=== PATIENT | female | born 1955 | race Caucasian/White ===

== ENCOUNTER 2016-06-18 12:05 | Emergency (ER) | payer OTHER, BC | END 2016-06-18 16:59 | disposition home or self-care (01) | LOC: ER 12:05 | DX: S00.83XA Contusion of other part of head, initial encounter (principal); S60.031A Contusion of right middle finger without damage to nail, initial encounter; S80.01XA Contusion of right knee, initial encounter; S70.12XA Contusion of left thigh, initial encounter; S83.511A Sprain of anterior cruciate ligament of right knee, initial encounter; W01.10XA Fall on same level from slipping, tripping and stumbling with subsequent striking against unspecified object, initial encounter; Y93.89 Activity, other specified; Y92.219 Unspecified school as the place of occurrence of the external cause; Y99.0 Civilian activity done for income or pay; I10 Essential (primary) hypertension; Z79.82 Long term (current) use of aspirin | CPT/HCPCS: 70450 ==